=== PATIENT | male | born 1975 | race Caucasian/White ===

== ENCOUNTER 2016-11-30 09:38 | Emergency (ER) | payer BC, OTHER ==
[2016-11-30 09:50] VITALS: BP 108/88
--- NOTE | 2016-11-30 10:23 | UC ---
Respiratory Complaint HPI - HPI Summary HPI Summary: cough and congestion for two days. no pain. cough is occassionally productive. - History of Current Complaint Chief Complaint: UCRespiratory Stated Complaint: SORE THROAT RUNNY NOSE ITCHY EYES Time Seen by Provider: 11/30/16 10:07 Onset/Duration: Gradual Onset, Lasting Days Timing: Constant Severity Initially: Moderate Severity Currently: Moderate Aggravating Factors: Deep Breaths, Recumbent Position Associated Signs And Symptoms: Positive: URI, Nasal Congestion. Negative: Fever , Chills, Sinus Discomfort - Allergies/Home Medications Allergies/Adverse Reactions: Allergies Allergy/AdvReac Type Severity Reaction Status Date / Time Penicillins Allergy Severe Hives Verified 11/30/16 09:50 Amoxicillin Allergy Intermediate Hives Verified 11/30/16 09:50 Naproxen AdvReac Joint Pain Verified 11/30/16 09:50 Home Medications: Home Medications Canagliflozin (NF) [Invokana (NF)] 100 mg PO DAILY 11/30/16 [History Confirmed 11/30/16] PMH/Surg Hx/FS Hx/Imm Hx Endocrine History: Diabetes Cardiovascular History: Hypertension - Surgical History Surgical History: Yes Surgery Procedure, Year, and Place: vasectomy, back surgery, bi-lat cataracts - Family History Known Family History: Positive: Hypertension - Social History Alcohol Use: Occasionally Substance Use Type: None Smoking Status (MU): Never Smoked Tobacco - Immunization History Most Recent Tetanus Shot: 2009 Review of Systems ENT: Sore Throat All Other Systems Reviewed And Are Negative: Yes Physical Exam Triage Information Reviewed: Yes Appearance: Well-Appearing, Well-Nourished, Obese Vital Signs: Initial Vital Signs Temp 98.4 F 11/30/16 09:46 Pulse 76 11/30/16 09:46 Resp 16 11/30/16 09:46 BP 108/88 11/30/16 09:46 Pulse Ox 97 11/30/16 09:46 Vital Signs Reviewed: Yes Eye Exam: Normal ENT: Positive: Pharyngeal erythema, Nasal congestion, TMs normal. Negative: Tonsillar swelling, Tonsillar exudate, Trismus, Muffled/hoarse voice Neck exam: Normal Neck: Positive: Supple, Nontender, No Lymphadenopathy Respiratory Exam: Normal Cardiovascular Exam: Normal Abdominal Exam: Normal Abdomen Description: Positive: Nontender Musculoskeletal Exam: Normal Musculoskeletal: Positive: Strength Intact, ROM Intact, No Edema Neurological Exam: Normal Psychological Exam: Normal Skin Exam: Normal UC Diagnostic Evaluation - Laboratory O2 Sat by Pulse Oximetry: 97 Respiratory Course/Dx - Differential Dx/Diagnosis Provider Diagnoses: viral uri Discharge - Discharge Plan Condition: Good Disposition: HOME Patient Education Materials: Upper Respiratory Infection (ED) Referrals: Siva Hatch DO [Primary Care Provider] - If Needed
== END 2016-11-30 10:27 | disposition home or self-care (01) ==
LOC: UCCORT 09:38
DX: J06.9 Acute upper respiratory infection, unspecified (principal); E11.9 Type 2 diabetes mellitus without complications; I10 Essential (primary) hypertension; E66.9 Obesity, unspecified; Z88.0 Allergy status to penicillin; Z88.6 Allergy status to analgesic agent
CPT/HCPCS: 99211; G0463

== ENCOUNTER 2018-09-17 08:16 | Emergency (ER) | payer BC ==
[2018-09-17 08:40] VITALS: BP 144/87
--- NOTE | 2018-09-17 09:08 | UC ---
Back Pain HPI - HPI Summary HPI Summary: 43-year-old male comes in with a chief complaint of low back pain. But a month ago at home he tripped and fell over a wood pile. He's had back pain ever since then. Recently is getting worse. Pain is primarily in the low back to the right of the spine goes down his right leg. Pain is a lot worse anytime he tries to move. No weakness or numbness. 3 days ago he did have 2 episodes where he had difficulty controlling his stool. He still able to make it to the toilet before he had stool. No further problems controlling stool. Patient has had back surgery in the past and has seen a neurosurgeon in [place]. He' s tried Tylenol but is not helping with the pain. - History of Current Complaint Chief Complaint: UCBackPain Stated Complaint: LOWER BACK PAIN Time Seen by Provider: 09/17/18 08:41 Pain Intensity: 3 - Allergies/Home Medications Allergies/Adverse Reactions: Allergies Allergy/AdvReac Type Severity Reaction Status Date / Time amoxicillin Allergy Hives Verified 09/17/18 08:31 naproxen Allergy Joint Pain Verified 09/17/18 08:31 Penicillins Allergy Hives Verified 09/17/18 08:31 Home Medications: Home Medications Liraglutide (NF) [Victoza (NF)] 1.8 mg SUBCUT DAILY 09/17/18 [History Confirmed 09/17/18] Modafinil TAB* [Provigil TAB*] 200 mg PO BID PRN 09/17/18 [History Confirmed 07/07] PMH/Surg Hx/FS Hx/Imm Hx Previously Healthy: Yes Endocrine History: Diabetes - Surgical History Surgical History: Yes Surgery Procedure, Year, and Place: vasectomy, back surgery, bi-lat cataracts - Family History Known Family History: Positive: Hypertension - Social History Alcohol Use: Occasionally Substance Use Type: None Smoking Status (MU): Never Smoked Tobacco - Immunization History Most Recent Tetanus Shot: 2009 Review of Systems All Other Systems Reviewed And Are Negative: Yes Constitutional: Positive: Negative Skin: Positive: Negative Eyes: Positive: Negative ENT: Positive: Negative Respiratory: Positive: Negative Cardiovascular: Positive: Negative Gastrointestinal: Positive: Negative Genitourinary: Positive: Negative Motor: Positive: Negative Neurovascular: Positive: Negative Musculoskeletal: Positive: Other: - SEE HPI Neurological: Positive: Other - SEE HPI Psychological: Positive: Negative Is Patient Immunocompromised?: No Physical Exam Triage Information Reviewed: Yes Appearance: Well-Appearing, Well-Nourished, Pain Distress - MILD WITH ROM Vital Signs: Initial Vital Signs Temp 97.3 F 09/17/18 08:34 Pulse 67 09/17/18 08:34 Resp 18 09/17/18 08:34 BP 144/87 09/17/18 08:34 Pulse Ox 98 09/17/18 08:34 Vital Signs Reviewed: Yes Eye Exam: Normal Eyes: Positive: Conjunctiva Clear Neck: Positive: Supple Respiratory: Positive: Lungs clear, Normal breath sounds, No respiratory distress Musculoskeletal: Positive: Other: - Patient is tender to palpation patient is tender to palpation right lower lumbar. No sensation deficits. Right Plantar flexion and dorsiflexion knee flexion extension and hip flexion are all limited comparison to the left. Patient reports they're limited due to pain and not because of weakness. Any of these movements of the right leg cause greater back pain. On the left leg plantarflexion and dorsiflexion knee flexion extension are all normal. Left hip flexion does increase the back pain. Neurological: Positive: Alert Psychological Exam: Normal Psychological: Positive: Age Appropriate Behavior Skin Exam: Normal Back Pain Course/Dx - Course Course Of Treatment: Patient is unable to take NSAIDs. Given a prescription for [place] and also Flexeril. Patient said both these in the past. Patient was able to obtain a follow-up appointment with his neurosurgeon for tomorrow September 18, 2018. At this time the patient has no focal neurologic deficits. We discussed that if he has any neurologic deficits to include difficulty controlling urine or bowel he is to go to the emergency department most probably further evaluation with MRI. - Differential Dx/Diagnosis Provider Diagnosis: Low back pain, Lumbar radiculopathy Discharge - Sign-Out/Discharge Documenting (check all that apply): Patient Departure All imaging exams completed and their final reports reviewed: No Studies - Discharge Plan Condition: Stable Disposition: HOME Prescriptions: Cyclobenzaprine TAB* [Flexeril 10 MG TAB*] 10 mg PO TID PRN #15 tab MDD 3 PRN Reason: Pain HYDROcodone/ACETAMIN 5-325 MG* [[place] 5-325 TAB*] 1 tab PO Q4H PRN #30 tab MDD 6 PRN Reason: Pain Patient Education Materials: Acute Low Back Pain (ED), Lumbar Radiculopathy (ED ), Lower Back Exercises (ED) Forms: *Work Release Referrals: Siva Hatch DO [Primary Care Provider] - Additional Instructions: FOLLOW UP WITH YOUR NEUROSURGEON TOMORROW, 09/18/18, SCHEDULED. GO TO THE EMERGENCY DEPARTMENT IF YOUR CONDITION WORSENS; PAIN, WEAKNESS, NUMBNESS, DIFFICULTY CONTROLLING BOWEL OR BLADDER OR ANY QUESTIONS OR CONCERNS. - Billing Disposition and Condition Condition: STABLE Disposition: Home
== END 2018-09-17 09:22 | disposition home or self-care (01) ==
LOC: UCCORT 08:16
DX: M54.5 Low back pain (principal); M54.16 Radiculopathy, lumbar region; E11.9 Type 2 diabetes mellitus without complications; Z88.0 Allergy status to penicillin; Z88.8 Allergy status to other drugs, medicaments and biological substances; Z79.84 Long term (current) use of oral hypoglycemic drugs
CPT/HCPCS: 99212; G0463